=== PATIENT | male | born 1960 | race Caucasian/White ===

== ENCOUNTER 2017-06-13 05:45 | Day surgery (SDC) | payer OTHER ==
--- NOTE | 2017-06-12 17:38 | PDGENHP ---
History and Physical - Chief Complaint bilateral inguinal hernias - History of Present Illness 57yo M with bilateral inguinal hernias, symptomatic History Information - Allergies/Home Medication List Allergies/Adverse Reactions: lactose Allergy (Verified 06/03/17 16:25) GI ISSUES Penicillins Allergy (Verified 06/03/17 16:25) Rash Home Medications: ASPIRIN DAILY06 06/03/17 [Last Taken Unknown] Dexmethylphenidate HCl DAILY06 06/03/17 [Last Taken Unknown] Effexor DAILY06 06/03/17 [Last Taken Unknown] GLIPIZIDE DAILY06 06/03/17 [Last Taken Unknown] Herbal Drugs DAILY 06/03/17 [Last Taken Unknown] Januvia 100 MG (*) DAILY06 06/03/17 [Last Taken Unknown] Lisinopril DAILY06 06/03/17 [Last Taken Unknown] Metformin HCl BID 06/03/17 [Last Taken Unknown] SIMVASTATIN DAILY06 06/03/17 [Last Taken Unknown] I have personally reviewed and updated: family history, medical history - Social History Smoking Status: Never smoked Review of Systems Review of Systems: ROS: 10pt was reviewed & negative except for what was stated in HPI & below Physical Exam Physical Exam: Constitutional: no apparent distress, appears nourished, not in pain Eyes: PERRL, anicteric sclera, EOMI Ears, Nose, Mouth, Throat: moist mucous membranes, hearing normal, ears appear normal, no oral mucosal ulcers Cardiovascular: regular rate and rhythym, no murmur, rub, or gallop, No edema Respiratory: no respiratory distress, no rales or rhonchi, clear to auscultation Gastrointestinal: other (bilateral reducible inguinal hernias ) Genitourinary: no bladder fullness, no bladder tenderness Skin: warm, normal color, no rashes or abrasions, no fluctuance, no induration, No mottled Musculoskeletal: full muscle strength, no muscle tenderness, normal joint ROM, no joint effusions Psychiatric: interacting appropriately, not anxious, not encephalopathic, thought process linear Lymph, Heme, Immunologic: no cervical LAD, no supraclavicular LAD Assessment & Plan Assessment: [facility] Plan: to OR for robotic repair, RBA discussed
[2017-06-13] MEDS ORDERED: CLINDAMYCIN 900 MG/DEXTROSE 50 ML IV ONE (06:11)
[2017-06-13] MEDS ORDERED: LR 1,000 ML IV ONE (06:13)
[2017-06-13] MEDS ORDERED: PROPOFOL/EMULSION 500 MG/50 ML BOTTLE IV ONE ×2 (07:05→08:42)
[2017-06-13] MEDS ORDERED: fentaNYL 250 MCG/5 ML INJ ONE (07:12)
[2017-06-13] MEDS ORDERED: BUPIVACAINE 0.25% 30 ML SDV ONE (07:15)
--- NOTE | 2017-06-13 07:20 | PDANEPAE ---
ANE History of Present Illness 57 year old male with DM, Htn, ADHD, depression for inguinal hernia repair. ANE Past Medical History - Cardiovascular History Hx Hypertension: Yes Hx Arrhythmias: No Hx Chest Pain: No Hx Coronary Artery / Peripheral Vascular Disease: No Hx CHF / Valvular Disease: No Hx Palpitations: No Cardiovascular History Comment: BP RUNS LOW - Pulmonary History Hx COPD: No Hx Asthma/Reactive Airway Disease: No Hx Recent Upper Respiratory Infection: No Hx Oxygen in Use at Home: No Hx Sleep Apnea: No Sleep Apnea Screening Result - Last Documented: Negative - Neurologic History Hx Cerebrovascular Accident: No Hx Seizures: No Hx Dementia: No - Endocrine History Hx Diabetes: Yes Endocrine History Comment: NIDDM - Renal History Hx Renal Disorders: Yes Renal History Comment: BPH. NOCTURIA. ON BP RX FOR KIDNEY PROTECTION - Liver History Hx Hepatic Disorders: No - Neurological & Psychiatric Hx Hx Neurological and Psychiatric Disorders: Yes Neurological / Psychiatric History Comment: ANXIETY. ADHD - Cancer History Hx Cancer: Yes Cancer History Comment: SKIN - Congenital Disorder History Hx Congenital Disorders: No - GI History Hx Gastrointestinal Disorders: Yes Gastrointestinal History Comment: REFLUX WITH LATE MEALS - Other Health History Other Health History: RECOVERING ALCOHOLIC - Chronic Pain History Chronic Pain: Yes (LAURI INGUINAL AREA) - Surgical History Prior Surgeries: WISDOM TEETH ANE Review of Systems Review of systems is: negative Review of Systems: - Exercise capacity METS (RN): 4 METS ANE Patient History - Allergies Allergies/Adverse Reactions: lactose Allergy (Verified 06/03/17 16:25) GI ISSUES Penicillins Allergy (Verified 06/03/17 16:25) Rash - Home Medications Home Medications: ASPIRIN DAILY06 06/03/17 [Last Taken Unknown] Dexmethylphenidate HCl DAILY06 06/03/17 [Last Taken Unknown] Effexor DAILY06 06/03/17 [Last Taken Unknown] GLIPIZIDE DAILY06 06/03/17 [Last Taken Unknown] Herbal Drugs DAILY 06/03/17 [Last Taken Unknown] Januvia 100 MG (*) DAILY06 06/03/17 [Last Taken Unknown] Lisinopril DAILY06 06/03/17 [Last Taken Unknown] Metformin HCl BID 06/03/17 [Last Taken Unknown] SIMVASTATIN DAILY06 06/03/17 [Last Taken Unknown] - NPO status NPO Since - Liquids (Date): 06/13/17 NPO Since - Liquids (Time): 06:15 NPO Since - Solids (Date): 02/15/18 NPO Since - Solids (Time): 22:30 - Smoking Hx Smoking Status: Never smoked - Family Anes Hx Family Hx Anesthesia Complications: NEG ANE Labs/Vital Signs - Labs - BMP Glucose: 157 this am - Vital Signs Blood Pressure: 120/83 Heart Rate: 93 Respiratory Rate: 16 O2 Sat (%): 94 Height: 172.09 cm Weight: 77.111 kg ANE Physical Exam - Airway Neck exam: FROM Mallampati Score: Class 2 Mouth exam: normal dental/mouth exam - Pulmonary Pulmonary: no respiratory distress - Cardiovascular Cardiovascular: regular rate and rhythym - ASA Status ASA Status: III ANE Anesthesia Plan Anesthesia Plan: general endotracheal anesthesia
--- NOTE | 2017-06-13 08:22 | PDHPUP ---
History & Physical Update H&P update statement: This history and physical update is based on an assessment of the patient which was completed after admission or registration (within 24 hours), but prior to the surgery/procedure. H&P update: H&P reviewed & patient examined, no change in patient's condition since H&P completed
[2017-06-13] MEDS ORDERED: HYDROCODONE/APAP 5/325 TAB PO PRN (09:38)
[2017-06-13] MEDS ORDERED: OXYCODONE/APAP 5/325 TAB PO PRN (09:38)
[2017-06-13] MEDS ORDERED: MEPERIDINE 25 MG/ML SYR IVP PRN (09:38)
[2017-06-13] MEDS ORDERED: NALOXONE HCL 0.4 MG/ML INJ IVP PRN (09:38)
[2017-06-13] MEDS ORDERED: HYDROmorphONE/DILAUDID 1 MG/ML INJ IVP PRN (09:38)
[2017-06-13] MEDS ORDERED: ONDANSETRON 4 MG/2 ML VIAL IVP PRN (09:38)
[2017-06-13] MEDS ORDERED: LABETALOL HCL 5 MG/ML 20 ML MDV IVP PRN (09:38)
[2017-06-13] MEDS ORDERED: DEXAMETHASONE 4 MG/ML VIAL IVP PRN (09:38)
[2017-06-13] MEDS ORDERED: ALBUTEROL 3 ML DEYVIAL IH PRN (09:38)
[2017-06-13] MEDS ORDERED: LR 500 ML IV PRN (09:38)
[2017-06-13] MEDS ORDERED: PHENYLEPHRINE HCL 100 MCG/ML SYR IVP PRN (09:38)
[2017-06-13] MEDS ORDERED: PROMETHAZINE HCL 25 MG/ML INJ IVP PRN (09:38)
--- NOTE | 2017-06-13 10:14 | POSTOPPROG ---
Post Op Note Date of Operation: 06/13/17 Surgeon: Ralf Wetzel Fashion Artist: Tabitha Yadav, KAMAR Anesthesiologist: Sharyn Anesthesia: GET(General Endotracheal) Pre-op Diagnosis: bilateral inguinal hernias Post-op Diagnosis: R pantaloon hernia, L indirect inguinal hernia Procedure: Rob robotic hernia repair with mesh Findings: R pantaloon, L indirect. BARD 3D light large Inf/Abcess present in the surg proc area at time of surgery?: No EBL: Minimal
[2017-06-13 10:23] VITALS: PULSE 102
[2017-06-13] MEDS ORDERED: fentaNYL 100 MCG/2 ML INJ ONE (11:06)
[2017-06-13] MEDS: fentaNYL 100 MCG/2 ML INJ IVP PRN ×3 (11:08→11:25)
--- NOTE | 2017-06-13 11:18 | POSTANESTH ---
Post Anesthetic Evaluation Cardiovascular Status: Normal, Stable Respiratory Status: Normal, Stable Level of Consciousness/Mental Status: Can Participate in Eval Pain Control: Adequate, Prn Tx Ordered Nausea/Vomiting Control: Adequate, Prn Tx Ordered Complications Possibly Related to Anesthesia: None Noted
[2017-06-13] MEDS ORDERED: OXYCODONE/APAP 5/325 TAB ONE (11:24)
[2017-06-13 14:25] VITALS: BP 101/63; RESP 14; O2SAT 96
[2017-06-13 14:52] VITALS: TEMP 97.5
--- NOTE | 2017-06-15 13:36 | GOP ---
[f rep st] OPERATIVE REPORT DATE OF OPERATION: 06/13/2017 SURGEON: Ralf Wetzel MD SENIOR CONTROLLER: Tabitha Yadav PA-C ANESTHESIA: General endotracheal. ANESTHESIOLOGIST: Vilma Coles MD PREOPERATIVE DIAGNOSIS: Bilateral inguinal hernias. POSTOPERATIVE DIAGNOSIS: 1. Right-sided pantaloon hernia. 2. Left-sided indirect inguinal hernia. PROCEDURE PERFORMED: Robotic assisted laparoscopic inguinal hernia repair with mesh. FINDINGS: Right-sided pantaloon hernia. Left-sided indirect inguinal hernia. Both successfully red uced and repaired with Bard 3D Light large-size mesh. SPECIMENS: None. ESTIMATED BLOOD LOSS: 5 cc. DESCRIPTION OF PROCEDURE: The patient was greeted in the preoperative suite. Once again, risks, nj efits, and alternatives were discussed. Consent was signed. He was then brought back to the operati ve suite, placed on the OR table in supine position. After all anesthesia machines including SCDs we re on and functioning, a [employer] time-out was performed. After successful inductio n of general anesthesia, the patient's abdomen was prepped and draped in typical sterile fashion. I entered the abdomen via a supraumbilical cutdown, through which the Veress needle was passed. I achi eved pneumoperitoneum to 15 mmHg CO2 which was well tolerated by the patient. After successful pneum operitoneum, I inserted a 5 mm Visiport into this area and inspected the abdominal viscera. I placed an 8 mm port in both the right and left upper quadrants, both under direct visualization, and upsize d my supraumbilical port to an 8 as well. I then placed the patient into gentle Trendelenburg positi on and successfully docked the robot. Once into the abdomen, I turned my attention first toward the right side, and in an area just above the anterior superior iliac spine, created a plane in the perit oneum and entered the preperitoneal plane. I carried this medially. I dissected bluntly down to Chair Caner per ligament and then laterally down to the visceral sac. I identified the pantaloon hernia and redu suma both the indirect and direct hernias on the left side, taking care to protect the cord structures . I did this all the way down to the visceral sac. I then brought my piece of mesh and successfully sutured it to John ligament, as well as on either side of the inferior epigastric vessels. I perf ormed the exact same procedure on the left side, except for the patient only had an indirect hernia o n this side. It was successfully reduced all the way down to the visceral sac. A left-sided specifi c Bard 3D Light mesh was then successfully placed, attached to John ligament, and sutured on either side of the inferior epigastric vessels. The peritoneum was then closed in a running fashion with a 2-0 V-Loc suture, noting excellent reapproximation. Pneumoperitoneum was then the evacuated, the po rts were removed, and the skin was closed with Monocryl, over which sterile Dermabond was placed. Th e patient was then extubated in the operative suite and taken to the PACU in satisfactory condition. DRAINS: None. COUNTS: All counts were reported as correct x2. /[id number]/MODL
== END 2017-06-13 14:22 | disposition home or self-care (01) ==
LOC: FSGY 05:45
PROVIDERS: ATTEND Surgery
PROC: 0YUA4JZ Supplement Bilateral Inguinal Region with Synthetic Substitute, Percutaneous Endoscopic Approach (ICD-10-PCS; principal; 2017-06-13 07:15)
PROC: 8E0W8CZ Robotic Assisted Procedure of Trunk Region, Via Natural or Artificial Opening Endoscopic (ICD-10-PCS; principal; 2017-06-13 07:15)
DX: K40.20 Bilateral inguinal hernia, without obstruction or gangrene, not specified as recurrent (principal); E11.9 Type 2 diabetes mellitus without complications; I10 Essential (primary) hypertension; F32.9 Major depressive disorder, single episode, unspecified; Z88.0 Allergy status to penicillin
CPT/HCPCS: C1781; J0171; J2704; J3010